=== PATIENT | female | born 1985 | race Caucasian/White ===

== ENCOUNTER → 2024-08-28 | Outpatient (CLI) | payer MEDICAID, SELFPAY ==
[2024-08-28 16:32] LABS: Absolute Lymphocyte Count 3.54 X10^3/uL (0.83-4.51); Absolute Neutrophil Count 5.2 X10^3/uL (2.0-7.7); Basophil# 0.05 X10^3/uL; Basophil% 0.5 % (0-1); Eosinophil# 0.07 X10^3/uL; Eosinophils% 0.7 % (0-5); Hematocrit 40.9 % (37-47); Hemoglobin 13.8 g/dL (12.0-15.0); Lymphocyte # 3.54 X10^3/ul (0.83-4.51); Lymphocyte % 37.6 % (19-41); Mean Corp Hgb Conc 33.7 g/dL (32-36); Mean Corpuscular Hgb 30.7 pg (27.0-32.0); Mean Corpuscular Volume 91.1 fL (81-99); Monocyte# 0.58 X10^3/uL; Monocyte% 6.2 % (0-10); NRBC Flagged by Analyzer 0 % (0-5); Neutrophil # 5.15 X10^3/uL (2.7-7.7); Neutrophil % 54.8 % (47-70); Platelet Count 370 K/mm3 (150-450); RBC Distribution Width CV 12.8 % (11.6-14.6); Red Blood Count 4.49 M/mm3 (4.2-5.4); White Blood Count 9.4 K/mm3 (4.4-11.0)
[2024-08-28 17:09] LABS: ALB/GLOB Ratio 1.2 RATIO (0.9-2.4); AST(SGOT) 18 U/L (15-37); Alanine Aminotransfer ALT/SGPT 20 U/L (13-56); Albumin, Serum 3.9 g/dL (3.2-5.0); Alkaline Phosphatase 70 U/L (45-117); Anion Gap 5 (5-15); BUN 11 mg/dL (7-18); BUN/Creat Ratio 18.6 RATIO (10-20); Calcium,Total 9.1 mg/dL (8.5-10.1); Chloride 108 mmol/L (98-107); Creatinine, Serum 0.59 mg/dL (0.55-1.02); EST Glomerular Filtration Rate 119 mL/min (>60); Est Glom Filt Rate - Afr Amer 144 mL/min (>60); Globulin 3.3 g/dL (2.2-4.2); Glucose 92 mg/dL (74-106); Potassium 3.6 mmol/L (3.5-5.1); Protein, Total 7.2 g/dL (6.4-8.2); Sodium Level 136 mmol/L (136-145)
== END | disposition home or self-care (01) ==
PROVIDERS: PCP Registered Nurse; Referring Provider Student in an Organized Health Care Education/Training Program; Visit Provider Student in an Organized Health Care Education/Training Program
DX: R10.11 Right upper quadrant pain (principal)
CPT/HCPCS: 36415; 80053; 85025

== ENCOUNTER → 2024-09-11 | Outpatient (CLI) | payer MEDICAID, SELFPAY ==
--- NOTE | 2024-09-11 08:39 | US_ITS ---
INDICATION: RUQ pain EXAMINATION: Ultrasound US Abdomen RUQ (limited) TECHNIQUE: Alexis-scale and color Doppler imaging was performed of the abdomen. COMPARISON: FINDINGS: LIVER: There is slightly fatty echotexture measuring 13.9 cm. No focal hepatic lesion. No intrahepatic biliary ductal dilatation. There is no free fluid. GALLBLADDER AND BILIARY TREE: Cholelithiasis with single stone measuring 1.3 cm. No pericholecystic fluid or gallbladder wall thickening is demonstrated. The proximal common bile duct measures 2.7 mm, which is within normal limits for the patient''s age. SONOGRAPHIC CHEEMA''S SIGN: Negative. PANCREAS: No focal abnormality is demonstrated in the pancreas. No pancreatic ductal dilatation. RIGHT KIDNEY: 10.6 x 5.6 x 5.3 cm. The cortex is 11 mm. There is no hydronephrosis. No shadowing calculus, focal lesion, or perinephric collection is demonstrated. VESSELS: Submitted longitudinal images of the intra-abdominal aorta demonstrate no gross abnormalities and are unremarkable. The IVC is patent. US/Gallbladder IMPRESSION: Cholelithiasis. Slightly fatty liver. Electronically Signed: Aayush Anders DO at 16:08 EST Reading Location ID and State: [facility] / [place] Tel [phone], Service support ,
== END | disposition home or self-care (01) ==
LOC: US 08:31
PROVIDERS: PCP Registered Nurse; Referring Provider Student in an Organized Health Care Education/Training Program; Visit Provider Student in an Organized Health Care Education/Training Program
DX: R10.11 Right upper quadrant pain (principal)
CPT/HCPCS: 76705

== ENCOUNTER → 2024-10-27 | Outpatient (CLI) | payer MEDICAID, SELFPAY ==
--- NOTE | 2024-10-27 12:45 | NM_ITS ---
CLINICAL: 39-year-old female with history of right upper quadrant abdominal pain. RADIONUCLIDE HEPATOBILIARY SCINTIGRAPHY COMPARISON: Abdominal ultrasound report 09/11/2024 FINDINGS: Following the intravenous administration of 5.8 mCi of 99m Tc Mebrofenin, hepatobiliary images reveal: 1. Relatively prompt and homogeneous radiopharmaceutical concentration is noted by a normal sized liver. No parenchymal defects are identified. 2. Gallbladder activity is identified by 60 minutes post radiopharmaceutical administration. 3. Small intestinal tract is observed at 15 minutes following tracer injection. 4. Washout of the radiopharmaceutical by the hepatic parenchyma appears qualitatively normal. Cholecystokinin (0.02 ug/kg) was administered intravenously over a 30-minute period. The post CCK gallbladder ejection fraction calculated at 21 and 29 minutes following Cholecystokinin administration was noted to be < 5 % (normal greater than 35%). NM/Hepatobilliary Img w/Pharm Int IMPRESSION: 1. ABNORMAL 99m Tc Mebrofenin hepatobiliary imaging examination with Cholecystokinin. A. A gallbladder ejection fraction calculated to be less than 35% following the administration of Cholecystokinin is consistent with the presence of functional hepatobiliary disease (gallbladder and/or sphincter of Oddi dyskinesia) and/or organic hepatobiliary disease (chronic acalculous cholecystitis and/or cystic duct syndrome) in patients with intermediate to high pretest probabilities of hepatobiliary illness. (Emma Cavazos et al, Journal of Nuclear Medicine 32:1695, 1991). Electronically Signed: Sami Babin DO at 10:57 EST ,
== END | disposition home or self-care (01) ==
LOC: NM 12:40
PROVIDERS: PCP Registered Nurse; Referring Provider Surgery; Visit Provider Surgery
DX: R10.11 Right upper quadrant pain (principal)
CPT/HCPCS: 78227; A9537; J2805

== ENCOUNTER 2024-12-01 05:47 | Day surgery (SDC) | payer MEDICAID, SELFPAY ==
[2024-12-01] VITALS (16 sets, daily range): BP systolic 121–141; BP diastolic 56–80; PULSE 77–105; RESP 16–18; TEMP 36.4–36.9; O2SAT 84–100; BMI 39.1
--- NOTE | 2024-12-01 06:08 | EKG12_ITS ---
Test Reason : PRE-OP Blood Pressure : */* mmHG Vent. Rate : 68 BPM Atrial Rate : 68 BPM P-R Int : 142 ms QRS Dur : 84 ms QT Int : 382 ms P-R-T Axes : 11 15 24 degrees QTcB Int : 406 ms Normal sinus rhythm Normal ECG No previous ECGs available Confirmed by Rogers Pérez ([id number]), editorial project manager OLU CARMICHAEL ([id number]) on 12/01/2024 1:08:32 PM Referred By: Rogers Devi Confirmed By: Rogers Pérez
[2024-12-01 06:29] LABS: Internal QC Validated? YES +Cl - CLEAR BKGD
[2024-12-01 06:30] LABS: Pregnancy, Urine Negative Negative
[2024-12-01] MEDS: 0.9% Normal Saline (1000mL) 1,000 ML 15 ML IV (06:40)
--- NOTE | 2024-12-01 07:10 | PCM.HP.BLA ---
History and Physical Date of Admission: 12/01/24 Date of Service: 11/13/24 MR#: [id number] Acct: [id number] Name: OLU HERNANDEZ Rep #: [id number] : 1985 Provider: Dr. Rogers Devi MD Age/Sex: 39/F Location: [facility] Status: Signed Intake Vital Signs 09/28/2413:42 11/04/2508:56 11/13/2512:29 Height 5 ft 3.5 in 5 ft 3.5 in 5 ft 3 in Weight: 226 lb 228 lb BMI 39.4 40.4 BP 102/66 116/73 Blood Pressure Location Lt brachial Rt brachial Position Sitting Sitting Respiration 18 18 Pulse 86 Pulse Source Monitor Temp 96.5 F L Temp Source Temporal Pulse Oximetry (%) 100 Oxygen Delivery Method room air Intake Visit Reasons: Discuss cholcystectomy Chief Complaint: discuss cholecystectomy Is patient in pain?: Yes Allergies No Known Allergies Allergy (Verified 11/13/24 13:30) Medications ?Medication ?Instructions ?Recorded ?Confirmed ?Type acetaminophen 325 mg tablet 325 mg PO .prn PRN 09/28/24 11/13/24 History (Tylenol) ibuprofen 200 mg tablet 200 mg PO Q6H PRN 09/28/24 11/13/24 History PFSH Medical History RUQ abdominal pain Gallstone Surgical History H/O dilation and curettage H/O section Social History Smoking Status: Never smoker alcohol intake: never substance use type: does not use HPI HPI HPI: Patient is a 39-year-old female who presents for follow-up of recent hide imaging after original consultation visit for cholelithiasis and complaints of right upper quadrant pain. She was last seen 09/28/2024. She shares that she still has right upper quadrant pain that is nearly continuous. She describes this as a period pain but up higher. She acknowledges that it is may be somewhat worse with greasy foods but with that being present nearly all the time she has a hard time distinguishing the significance of this association. Lastly she suggest that the pain seems to be in someway connected to her need to be constantly peeing and having bowel movements. She is unsure of whether she is given follow-up with gastroenterology but jointly we find that she is pending a follow-up visit with gastroenterology in 2 weeks. Below is recapitulated from patient's consultation visit for ease of review: Patient is a 39-year-old female who presents for complaints of right upper quadrant pain and recently diagnosed cholelithiasis. They are referred for surgical consultation from gastroenterology and Mrs. Evette Gonzalez NP. Ms. Hernandez shares that she first found herself in the emergency department in July because of a crippling pain wrapping around to her back that started while at work. She actually suggest that she bent down at work and back pain preceded any abdominal pain. She notes the pain persisted after her evaluation and lasted a total of a week but has been intermittently present had a lower intensity even still. She believes that heating pad used in that first week after evaluation helped a little bit along with taking regular Tylenol and ibuprofen. She confirms she met with Dr. Mitchell of general surgery who suggested the regionality of her pain was not consistent with a gallbladder source and referred her to GI. It was then through gastroenterology that she completed right upper quadrant ultrasound and laboratories. She confirms that she filled the dicyclomine prescription but never started this medication. Pain is described as sometimes being exacerbated with certain movements. She comments that lying flat tends to help with this pain. She also shares that as soon as she is finished eating she will experience some right upper quadrant discomfort within 10 minutes at the most and must make her way immediately to the bathroom where she has diarrhea. She estimates that she will have 3 bowel movements of diarrhea without any blood or straining each day. She notes that there is been associated foul smell with this bowel habit change. Additional associated symptoms include heartburn occurring up to 3 times per day, bloating and some limited reflux. Ms. Neville denies any history of prior EGD or endoscopic evaluation. She denies any family history, specifically, of inflammatory bowel disease, colon cancer, or diverticulitis. She does share that her scratch that son regularly follows with gastroenterology due to a history of chronic constipation and must use MiraLAX to have bowel movements regularly. Patient's past surgical history is inclusive of 3 sections and a D&C. Patient has a remote history of tobacco use which was used at 1 pack/day frequency. Patient's initial CT of the abdomen pelvis showed a contracted gallbladder with cholelithiasis in July 2024. Gallbladder ultrasound was then performed 09/11/2024 and showed a single stone measuring 1.3 cm. No pericholecystic fluid or gallbladder wall thickening was demonstrated. Common bile duct was within normal limits. Beyond the cholelithiasis, radiology did comment that there was a slightly fatty liver. ROS General General: Yes weight change and fatigue; No appetite, colon cancer, breast cancer or weakness HEENT HEENT: No difficulty swallowing, eye injury, eye surgery, swollen glands or hoarseness Endo Endocrine: No thyroid disease, diabetes mellitus, thyroid cancer, Hair loss, heat intolerance or cold intolerance Skin Skin: No rash or changing moles Musc Musculoskeletal: Yes back problems; No arthritis, rheumatoid arthritis, gout or joint pain Cardio Cardiovascular: No murmur, pacemaker, heart disease, atrial fibrillation, high blood pressure, heart attack, heart stent, palpitations, shortness of breat with exertion or chest pain Psych Psychiatric: No depression, anxiety or hearing voices Resp Respiratory: No shortness of breath, No sleep apnea, No cough, No COPD, No asthma, No emphysema and No wheezing Gastro Gastrointestinal: Yes abdominal pain, Yes nausea or vomiting, Yes diarrhea, No constipation, No blood in stool, Yes acid reflux, No hemorrhoids, No ulcers, Yes gallbladder problem and No black,tarry stools Jv Hematologic: No blood thinners, No blood disorders, No bleeding, No anemia and No blood clots Neuro Neurologic: No system reviewed and no additional complaints, except as documented, No as per HPI, No abnormal gait, No abnormal hearing, No abnormal movements, No abnormal speech, No behavioral changes, No burning sensations, No confusion, No convulsions, No disequilibrium, No dizziness, No localized weakness, No frequent falls, No headache(s), No lack of coordination, No loss of vision, No memory loss, No numbness, No other visual disturbances, No radicular pain, No restless legs, No sensory deficit, No syncope, No tingling, No tremor(s), No weakness and No other Exam Const General: cooperative and comfortable Orientation: alert, awake and oriented x3 Resp Effort & Inspection: normal respiratory effort GI Other: Obese, striae present, no visible herniation, nondistended, soft, minimally tender to palpation of the right upper quadrant. Assessment and Plan Assessment and Plan (1) Biliary dyskinesia: Status: Acute Comment: Patient is a 39-year-old female with history of right upper quadrant pain and cholelithiasis that makes a follow-up visit after HIDA imaging showed an ejection fraction of less than 5% following CCK administration. I attempted to share the significance of this finding with patient during her visit today and discussed how this is markedly abnormal from the threshold of 35%. Yet I was also careful to qualify that I am unconvinced that this dysfunction of a gallbladder in adult can be considered the source of all her GI complaints. I reiterated that I believe a follow-up visit with gastroenterology would likely be helpful to clarify if some of her symptoms take from a different origin. I stated it was my interest to simply try to rectify issues that had an objective abnormality and thereby slowly try to bring resolution to her larger symptom picture. I thus went on to describe the procedure for laparoscopic cholecystectomy with intraoperative cholangiogram. Hand drawings were made to illustrate this understanding of the relevant anatomy and physiology. Patient expressed understanding and appreciation. Plan: Laparoscopic cholecystectomy with intraoperative cholangiography. To be completed with outpatient disposition intended. (2) Abnormal biliary HIDA scan: Status: Acute I have examined the patient and the H&P has been reviewed. There are no clinical changes since date of exam. I reviewed with patient that the conditions of her discharge will be adequate pain control and normal cholangiogram from our operation. She and her mother had the opportunity ask some additional questions and were answered to their satisfaction. Consents were confirmed. Will now proceed for laparoscopic cholecystectomy.
--- NOTE | 2024-12-01 07:12 | PRE.ANES_ITS ---
ASA Classification* ASA Classification ASA Classification: 2 Assessment & Plan Anesthesia* Anesthesia Assessment Anesthesia Assessment: Discussed sedation and/or anesthesia options, risks, benefits, and alternatives with patient/parents/legal guardian/POA. Questions invited. The patient/parents/legal guardian/POA seems to understand and agrees to proceed with anesthesia plan. Reviewed the physical assessment, medical history, allergy history and patient home medications list prior to surgery/procedure/anesthetic and documented any changes. Performed airway and anesthesia risk assessments. Anesthesia Type Anesthesia Type: General History Source History Obtained from:: Patient and Chart Anesthesia Focused Assessment* Temperature: 97.9 F Pulse Rate: 85 Blood Pressure: 121/56 Respiratory Rate: 16 Pulse Ox: 99 Oxygen Delivery Method: Room Air Airway Assessment Mouth opens: >3 cm Mallampati Score: IV Teeth Condition: Partial (Patient is upper partial. It is out. Rest are tight.) Neck Range of motion (ROM): Full ROM Focused Labs Anesthesia Preop lab: CBC WBC 9.4 K/mm3 (4.4-11.0) 08/28/24 16:08 08/28/24 RBC 4.49 M/mm3 (4.2-5.4) 08/28/24 16:08 08/28/24 Hgb 13.8 g/dL (12.0-15.0) 08/28/24 16:08 08/28/24 Hct 40.9 % (37-47) 08/28/24 16:08 08/28/24 Plt Count 370 K/mm3 (150-450) 08/28/24 16:08 08/28/24 CHEMISTRY Potassium 3.6 mmol/L (3.5-5.1) 08/28/24 16:08 08/28/24 Sodium 136 mmol/L (136-145) 08/28/24 16:08 08/28/24 BUN 11 mg/dL (7-18) 08/28/24 16:08 08/28/24 Creatinine 0.59 mg/dL (0.55-1.02) 08/28/24 16:08 08/28/24 Glucose 92 mg/dL (74-106) 08/28/24 16:08 08/28/24 COAG Urine Test Negative Negative 12/01/24 06:05 12/01/24 Pre-Assessment Diagnosis/Proposed Procedure Planned Operative Procedure(s): ODALIS MIRANDA WITH GRAMS Anesthesia History 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 When Was Last Pacemaker Check QUESTION #4 FULL TEXT: You/Your Family Experience fever (hyperthermia) with Anesthesia Last Oral Intake Last Oral intake: Last Oral Intake NPO since 19:00 12/01/24 06:23 Meds taken in AM with sips of No 12/01/24 06:23 water? Meds patient instructed to take am of surgery PONV PONV - automobile assembler: PONV - automobile assembler Female Yes 11/19/24 10:20 HX of Motion Sickness No 11/19/24 10:20 HX of N/V After Surgery No 11/19/24 10:20 Non-Smoker Yes 11/19/24 10:20 Duration of Surgery greater Yes 11/19/24 10:20 than 60 minutes Number of Risk Factors 3 11/19/24 10:20 PONV Score Moderate Risk 11/19/24 10:20 Height & Weight Height & Weight: Anesthesia: Height & Weight Height 5 ft 4 in 12/01/24 06:23 Weight: 103.419 kg 12/01/24 06:23 Body Mass Index (BMI) 39.1 12/01/24 06:23 Respiratory Assessment Respiratory Assessment - automobile assembler: Respiratory Tract Infection Hx - automobile assembler Hx Respiratory Tract Infection No 11/19/24 10:20 STOP Sleep Apnea STOP Sleep Apnea - automobile assembler: STOP Sleep Apnea - automobile assembler Hx Hypertension No 11/19/24 10:20 Hx Sleep Apnea No 11/19/24 10:20 CPAP BIPAP Do you snore loudly (louder Yes 11/19/24 10:20 than talking or can be heard Do you often feel tired/ No 11/19/24 10:20 fatigued/ sleepy during daytime? Has anyone observed you stop No 11/19/24 10:20 breathing during sleep? STOP Results Negative 11/19/24 10:20 QUESTION #5 FULL TEXT : Do you snore loudly (louder than talking or can be heard through closed doors)? 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 Specify any problems Hx of Preganancy in last 3 No 11/19/24 10:20 Months Nurse Filling Out Transfusion DSCHRIBER 11/19/24 10:20 & Questions: Date: 11/19/24 11/19/24 10:20 Time: 10:21 11/19/24 10:20 Patient unable to answer at this time (ie. confused, unrespo /Reproduction History /Reproductive History - automobile assembler: /Reproductive Hx- automobile assembler Hx Now No 11/19/24 10:20 Gestational Age (in weeks): EDC: Hx Hx Para Hx Section SAB No 11/19/24 10:20 Active Medications Active Medications: Current Medications Generic Name Dose Route Start Last Admin Trade Name Freq PRN Reason Stop Dose Admin Cefazolin Sodium 2 gm/ N/A 20 mls @ 400 mls/hr 12/01/24 07:30 IV 12/01/24 07:32 PREOP ONE Sodium Chloride 1,000 mls @ 15 mls/hr 12/01/24 06:05 12/01/24 06:40 IV 12/06/24 19:24 15 mls/hr .Q48H DEANA Administration Protocol PFS Medical History Wears glasses Wears partial dentures Marijuana use Gastric reflux Asthma Shortness of breath on exertion Non-smoker Gallstone RUQ abdominal pain Home Medications ?Medication ?Instructions ?Recorded ?Last Taken ?Type acetaminophen 325 mg tablet 325 mg PO Q6H PRN pain Unknown History (Tylenol) ibuprofen 200 mg tablet 200 mg PO Q6H PRN pain 09/28 Unknown History Allergy/AdvReac Type Severity Reaction Status Date / Time No Known Allergies Allergy Verified 12/01/24 06:13 Surgical History Hx of sinus surgery Hx of breast surgery Hx of breast augmentation H/O dilation and curettage H/O section Social History Smoking Status: Never smoker alcohol intake: never substance use type: does not use Review of Systems (Anesthesia) ROS Narrative System reviewed and no additional complaints, except as documented.
--- NOTE | 2024-12-01 07:30 | GALL_PTH ---
PATIENT: OLU HUTSON LOC: [facility] [place] U#:[id number] AGE/SX: 39/F ROOM: RE12/01/[address]: Dr. Rogers Devi MD : 1985 BED: DIS: 12/01/2024 SPEC #: [id number] RECD: 12/01/24 10:21 STATUS: JOAQUÍN SPAINKelby #: [id number] ELLA: 12/01/24 07:[address]: Rogers Devi DEPT: SURGICAL PATHOLOGY RECD BY: Linnea Ellison ENTERED: 12/01/24 11:55 SP TYPE: KAELYN OBREGON DR: Evette Gonzalez, CLIENT RELATIONS ASSOCIATE-C Tissues: Gallbladder, NOS Procedures: Surgery Specimen Level III HEADER OPERATION: Laparoscopic cholecystectomy with IOC PRE-OP DIAGNOSIS: Biliary dyskinesia TISSUE SUBMITTED: Gallbladder MICROSCOPIC DIAGNOSIS Gallbladder, cholecystectomy: Chronic cholecystitis and cholelithiasis. MASON. 12/02/2024 MICROSCOPIC DESCRIPTION Slides are reviewed. GROSS DESCRIPTION Received is one container labeled with the patient's name and designated gallbladder. The specimen consists of a gallbladder measuring 7 cm in length and up to 2.3 cm in diameter. The external surface is pink-santiago, smooth and glistening for the most part. Focally it is granular, hemorrhagic and contains cautery artifact. The gallbladder contains yellow-hemorrhagic bile and one black ovoid stone measuring in aggregate 1.2 x 1 x 0.7 cm. The mucosa is bile-stained and without any mass lesions. The gallbladder wall measures up to 0.3cm in thickness. Putty Glazer sections from the gallbladder and the cystic duct are submitted in one cassette. / SJ:mr 12/01/2024 TC:3 [facility]: [id number]
[2024-12-01] MEDS: Cefazolin 2 GM in Syringe IV (07:32)
--- NOTE | 2024-12-01 08:05 | RAD_ITS ---
PROCEDURE: CHOLANGIOGRAM/ O R,INITIAL REASON FOR EXAM: Laparoscopic cholecystectomy. TECHNIQUE: Intraoperative fluoroscopic views of the right upper quadrant were obtained COMPARISON: None. FINDINGS: Total fluoro time is 47 seconds for a dose of 35.2 mGy There is normal appearance of the intra and extrahepatic bile ducts. RAD/Cholangiogram/ O R,Initial IMPRESSION: INTRAOPERATIVE CHOLANGIOGRAM. Reading Location: [id number]
--- NOTE | 2024-12-01 08:56 | OP.PCM_ITS ---
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 Post-Operative Diagnosis: Chronic cholecystitis Surgery/Procedure Performed: Laparoscopic cholecystectomy with intraoperative cholangiography wool classer: Yes Universal Grinder Set Up Operator: Mercedes [place] Tasks completed by video library assistant: Opening & closing and Other (laparoscopic camera operation) Type of Anesthesia: General/Supplemental RN Documented Start/Stop Times: Operation Date: 12/01/24 07:30 Case Time Into Pre-Op 12/01/24 06:01 Out of Pre-Op 12/01/24 07:23 Anesthesia Start 12/01/24 07:26 Into Room 12/01/24 07:26 Procedure Start 12/01/24 07:59 Procedure End 12/01/24 09:04 Anesthesia End 12/01/24 09:10 Out of Room 12/01/24 09:10 Into Recovery 12/01/24 09:12 Out of Recovery 12/01/24 10:26 Into Phase II Recovery 12/01/24 10:27 Out of Phase II 12/01/24 13:12 Procedure Start Time: 07:59 Procedure Stop Time: 09:04 Select all DRAINS/GRAFTS/IMPLANTS that apply: None Estimated Blood Loss: 10 Specimen collected: Yes Description of specimen(s) removed: Gallbladder Description of surgery: After proper identification in the preoperative holding area the patient was brought to the operating room where she was positioned supine on the operating room table. Preoperatively SCDs were placed and antibiotics were administered. General anesthesia was then induced. Patient's abdomen was prepped and draped in usual sterile fashion. A formal timeout was conducted to confirm both patient and the procedure. Procedure was begun with a supraumbilical incision which was extended deeply down to the level of the fascia. The fascia was elevated and incised, as well as the peritoneum. A finger sweep was performed to ensure there were no underlying adhesions and a 12 mm balloon trocar was inserted. Pneumoperitoneum was established at 15 mmHg. Three additional trocars (all 5 mm) were placed in the epigastrium and in the right upper quadrant. Inspection of the peritoneum revealed no inadvertent injury to the viscera below. The gallbladder was visualized with mild chronic inflammation. The gallbladder fundus was then grasped and elevated cephalad. Then, using careful dissection the peritoneum was opened and the structures of the hepatocystic triangle were delineated. Once the critical view of safety was obtained, the cystic duct was singly clipped and partially divided with a ductotomy. The proximal duct was milked of any debris until there was backflow of bile. A cholangiocatheter was fed through the abdominal wall via an inserted 14-gauge Angiocath and then also into the proximal segment of the cystic duct and clipped into place. Under fluoroscopy a cholangiogram was then obtained showing a standard length cystic duct flowing into a common bile duct with unobstructed antegrade flow of contrast into the duodenum. There was also retrograde flow through the common hepatic duct into the right and left hepatic ducts. Satisfied with this result, the cholangiocatheter was withdrawn and the proximal cystic duct was sealed with clips and the cystic duct was completely transected. The same process was used for the cystic artery. The gallbladder was then removed from the gallbladder fossa with the use of electrocautery. Selective electrocautery was used to obtain hemostasis in the gallbladder fossa. The gallbladder was placed in an Endo Catch bag and removed from the peritoneum. Morison's pouch was irrigated and the effluent was suctioned free of the peritoneum. Hemostasis was again confirmed. Pneumoperitoneum was evacuated and the fascia of the 12 mm port sites was closed with #1Vicryl in a [id number] fashion. A total of 30 mL of anesthetic was injected at the port sites for postoperative pain control. The skin of each port site was then closed in subcuticular fashion using 4-0 Monocryl. Steri-Strips and bandages were applied as dressings. Patient tolerated the procedure well without any apparent com plications. On emergence from their anesthetic the patient was taken to PACU for ongoing recovery. Surgical Findings: ? Normal biliary anatomy with dominant posterior cystic artery ? Normal flow of bile cholangiogram ? Evidence of mild chronic cholecystitis Complications Complications: No Admit VTE Documentation VTE Mechan Device Prophylaxis: SCD's
[2024-12-01] MEDS: Bupiv/Epi 0.25% 30 ML Vial (08:58)
--- NOTE | 2024-12-01 08:59 | DCINST_ITS ---
Discharge Instructions Diet Discharge Diet: No restrictions Activity Discharge Activity: May Not Drive (No driving while using narcotic pain medication) and May Shower (Postoperative day 1) May shower in (days): 2 Ice area for (Minutes): 20 Lifting Restrictions: No lifting greater than 15 pounds for 2 weeks after surgery Dressing / Incision Call your doctor if your incision/area has: Continuous Slow Oozing, Increased Pain/ Swelling, Increased Redness, Foul Smelling Discharge and Swelling at the incision site Call your doctor if you observe: Fever of 101 or Higher Remove Dressing in: 2 days (Please leave Steri-Strips intact until they fall off spontaneously or are taken off at your follow-up visit) Cleanse incision/area with: Soap & Water Follow Up Care Please Follow Up With: Rogers Dvei MD When: 7-10days postop Test Results: Test results from this visit will be discussed in further detail at your follow- up appointment, if applicable. Discharge Plan Admission Primary Reason for Your Visit: Gallbladder surgery Attending Provider: Rogers Devi Primary Care Provider: Evette Gonzalez NP Instructions Print Language: Kosovan Discharge Orders/Prescriptions Prescriptions: New oxycodone 5 mg tablet 5 mg PO Q6H PRN (Reason: pain) 3 Days Qty: 14 0RF Continued acetaminophen [Tylenol] 325 mg tablet 325 mg PO Q6H PRN (Reason: pain) ibuprofen 200 mg tablet 200 mg PO Q6H PRN (Reason: pain) Referrals / Follow Up: Evette Gonzalez NP, MEDICAL APPOINTMENT CLERK-C [Primary Care Provider] - Disposition Disposition (needs filled in before D/C Order can be placed): Home, Self Care
--- NOTE | 2024-12-01 09:15 | PCM.POST.ANE ---
Anesthesia: Postop Eval I Current Vital Signs Temperature: 98.4 F Pulse Rate: 81 Blood Pressure: 141/80 Respiratory Rate: 18 Pulse Ox: 100 Oxygen Delivery Method: Room Air Assessment Airway patent: Yes Spontaneous unlabored respirations: Yes Mental status: Awake and Calm nausea: No Vomiting: No Anesthesia Complication: No Fluid Hydration Crystalloid volume administer (ml): 400 Total IV fluid infused: 400 Progress Note Anesthesia document: Postop Eval 1 completed: Yes
[2024-12-01] MEDS: oxyCODONE 5 MG Tablet PO (12:05)
--- NOTE | 2024-12-01 18:51 | POSTOPAN2_ITS ---
Anesthesia Postop Eval I Sum Postop Eval Completion status Anesthesia document: Postop Eval 1 completed: Yes Anesthesia Postop Eval I Summary Anesthesia Postop Eval I Summary: Anesthesia Postop Eval I: Assessment Summary Airway patent Yes 12/01/24 09:16 BUSINESS [email or web address] Spontaneous unlabored Yes 12/01/24 09:16 BUSINESS AGENT.[email or web address] respirations Mental status Awake,Calm 12/01/24 09:16 BUSINESS AGENT.GDOTT nausea No 12/01/24 09:16 BUSINESS AGENT.GDOTT Vomiting No 12/01/24 09:16 BUSINESS AGENT.GDOTT Anesthesia Postop Eval I: Fluid Summary Crystalloid volume administer 400 12/01/24 09:16 BUSINESS AGENT.GDOTT (ml) Colloids volume administered ( ml) Blood Product volume administered (ml) Total IV fluid infused 400 12/01/24 09:16 BUSINESS AGENT.GDOTT Anesthesia Postop Eval I: Summary Notes Anesthesia Complication No 12/01/24 09:16 BUSINESS AGENT.GDOTT Anesthesia Complication Comment: Post-operative progress note Anesthesia: Postop Eval II Evaluation Mental status: Awake and Calm Pain Level: 1 nausea: No Vomiting: No Complications Anesthesia Complication: No
--- NOTE | 2024-12-01 18:51 | PCM.POSTANE2 ---
Anesthesia Postop Eval I Sum Postop Eval Completion status Anesthesia document: Postop Eval 1 completed: Yes Anesthesia Postop Eval I Summary Anesthesia Postop Eval I Summary: Anesthesia Postop Eval I: Assessment Summary Airway patent Yes 12/01/24 09:16 FLOOR [email or web address] Spontaneous unlabored Yes 12/01/24 09:16 FLOOR [email or web address].[email or web address] respirations Mental status Awake,Calm 12/01/24 09:16 FLOOR [email or web address].[email or web address] nausea No 12/01/24 09:16 FLOOR CASHIER.[email or web address] Vomiting No 12/01/24 09:16 FLOOR CASHIER.[email or web address] Anesthesia Postop Eval I: Fluid Summary Crystalloid volume administer 400 12/01/24 09:16 FLOOR [email or web address].GDOTT (ml) Colloids volume administered ( ml) Blood Product volume administered (ml) Total IV fluid infused 400 12/01/24 09:16 FLOOR CASHIER.GDOTT Anesthesia Postop Eval I: Summary Notes Anesthesia Complication No 12/01/24 09:16 FLOOR CASHIER.GDOTT Anesthesia Complication Comment: Post-operative progress note Anesthesia: Postop Eval II Evaluation Mental status: Awake and Calm Pain Level: 1 nausea: No Vomiting: No Complications Anesthesia Complication: No
== END 2024-12-01 13:12 | disposition home or self-care (01) ==
LOC: SDC 05:47 → AC 05:48
PROVIDERS: Anesthesiology; PCP Registered Nurse; Referring Provider Surgery; Visit Provider Surgery
PROC: (CPT 47610; principal; 2024-12-01 07:10)
DX: K80.10 Calculus of gallbladder with chronic cholecystitis without obstruction (principal); K76.0 Fatty (change of) liver, not elsewhere classified; K82.8 Other specified diseases of gallbladder
CPT/HCPCS: 47563; 00790; 74300; 76000; 81025; 88304; 93005; J2405

== ENCOUNTER → 2024-12-11 | Outpatient (CLI) | payer MEDICAID, SELFPAY ==
[2024-12-11 14:47] LABS: Absolute Lymphocyte Count 3.23 X10^3/uL (0.83-4.51); Absolute Neutrophil Count 4.4 X10^3/uL (2.0-7.7); Basophil# 0.08 X10^3/uL; Eosinophil# 0.13 X10^3/uL; Eosinophils% 1.6 % (0-5); Hematocrit 41.4 % (37-47); Lymphocyte # 3.23 X10^3/ul (0.83-4.51); Lymphocyte % 38.5 % (19-41); Mean Corp Hgb Conc 33.8 g/dL (32-36); Mean Corpuscular Volume 91.8 fL (81-99); Mean Platelet Vol. 10.3 fl (6.2-12.0); Monocyte# 0.47 X10^3/uL; Monocyte% 5.6 % (0-10); NRBC Flagged by Analyzer 0 % (0-5); Neutrophil # 4.44 X10^3/uL (2.7-7.7); Neutrophil % 52.9 % (47-70); Platelet Count 406 K/mm3 (150-450); RBC Distribution Width CV 12.5 % (11.6-14.6); RBC Distribution Width SD 42.1 fl (35.1-43.9); Red Blood Count 4.51 M/mm3 (4.2-5.4); White Blood Count 8.4 K/mm3 (4.4-11.0)
== END | disposition home or self-care (01) ==
LOC: LAB 14:06
PROVIDERS: PCP Registered Nurse; Referring Provider Student in an Organized Health Care Education/Training Program; Visit Provider Student in an Organized Health Care Education/Training Program
DX: R19.5 Other fecal abnormalities (principal)
CPT/HCPCS: 36415; 85025